=== PATIENT | female | born 1990 | race African-American/Black ===

== ENCOUNTER 2018-12-06 16:28 | Emergency (ER) | payer OTHER ==
[~2018-12-06] VITALS: Ht 154.9 cm; Wt 54.4 kg
[2018-12-06] MEDS ORDERED: IRON159 MG PO (16:36)
--- NOTE | 2018-12-06 16:45 | NUR ---
ED Nurse Note: patient walked in by her self from home, per patient she is in 37 weeks, and she can not feel baby movement since yesterday. AAO x4, VSS at this time, skin is dry, intack. US tecnitian by bedside.
--- NOTE | 2018-12-06 16:54 | Emergency Room Report ---
History of Present Illness General Chief Complaint: Complications Source: Patient Present Illness HPI Patient is Approximately 30 weeks Presents reporting that she has not felt the baby moving over the past last night Denies any abdominal pain denies any cramping Denies any vaginal bleeding or spotting Denies any back pain or flank pain denies any dysuria frequency Patient reports that she is supposed to be delivering some more on [place] cannot give me the name of the specific hospital Allergies: Coded Allergies: No Known Allergies (Unverified , 12/06/18) Patient History Past Medical History: see triage record Pertinent Family History: none Now: Yes - 36 weeks : 2 Para: 1 Reviewed Nursing Documentation: PMH: Agreed; PSxH: Agreed Nursing Documentation-PMH Past Medical History: No Stated History Review of Systems All Other Systems: negative except mentioned in HPI Physical Exam Vital Signs Date Time Temp Pulse Resp B/P (MAP) Pulse Ox O2 Delivery O2 Flow Rate FiO2 12/06/18 16:33 97.3 95 16 113/69 99 Room Air Sp02 EP Interpretation: reviewed, normal General Appearance: well appearing, no apparent distress Head: normocephalic, atraumatic Eyes: bilateral eye PERRL, bilateral eye EOMI ENT: hearing grossly normal, normal pharynx, TMs + canals normal, uvula midline Neck: full range of motion, supple, no meningismus, no bony tend Respiratory: lungs clear, normal breath sounds, no rhonchi, no respiratory distress, no retraction, no accessory muscle use Cardiovascular #1: normal peripheral pulses, regular rate, rhythm, no edema, no gallop, no JVD, no murmur Gastrointestinal: normal bowel sounds, non tender, no hernia, no pulsatile mass , no rebound, other - Gravid abdomen palpable Genitourinary: no CVA tenderness Musculoskeletal: normal inspection Neurologic: oriented x3, responsive, retail route supervisor III-XII nml as tested, motor strength/ tone normal, sensory intact Psychiatric: mood/affect normal Skin: normal color, no rash, warm/dry, palpation normal Lymphatic: normal inspection, no adenopathy Medical Decision Making Diagnostic Impression: Primary Impression: Third trimester ER Course Given the patient's history and complaints ultrasound was obtained There is a heart tone of 140 observed No obvious rupture or other acute pathology Given the patient's late stage of she was encouraged to follow up closely with her MEDICAL DIR physician in the morning Given the lack of any pain or vaginal bleeding further evaluation was not performed Last Vital Signs Date Time Temp Pulse Resp B/P (MAP) Pulse Ox O2 Delivery O2 Flow Rate FiO2 12/06/18 16:33 97.3 95 16 113/69 99 Room Air Status: improved Disposition: HOME, SELF-CARE Condition: Stable Additional Instructions: Patient is provided with the discharge instructions notified to follow up with primary doctor in the next 2-3 days otherwise return to the er with any worsening symptoms. Please note that this report is being documented using [employer] technology. This can lead to erroneous entry secondary to incorrect interpretation by the dictating instrument. Lan Contreras DO Dec 06, 2018 16:54
[2018-12-06 17:55] VITALS: BP 108/66
--- NOTE | 2018-12-06 17:57 | NUR ---
ED Nurse Note: Pt cleared by health care Provider for discharge. DC instructions/prescription was given and explained to pt and verbalized understanding of teachings. All medical deviecs such as ID band removed. Pt is AAO x4, ambulatory and left with all personal belongings.
--- NOTE | 2018-12-07 09:34 | Diagnostic Imaging Report ---
Indication: Pelvic pain, patient Technique: Transabdominal images of the uterus and fetus Comparison: none Findings: There is a single live intrauterine . This demonstrates positive heart activity, heart rate 142 bpm. Anterior fundal placenta, clears the internal cervical os. The cervix is closed, endocervical canal measuring 4.8 cm. Single amniotic fluid pocket demonstrated, measures 2.7 cm measurements as follows-biparietal diameter 91 mm, 37 weeks zero days; head circumference 336 mm, 38 weeks 3 days; abdominal circumference 343 mm, 38 weeks one day; femur length 70 mm, 36 weeks zero days. Estimated gestational age by average of ultrasound measurements is 37 weeks 3 days, estimated date of delivery 12/24/2018. Estimated gestational age by dates is 38 weeks 5 days. Due to emergent nature of the exam, only limited assessment of anatomy performed. Four-chamber heart, normal spine and kidneys demonstrated. Impression: 37 week 3 day, by average of ultrasound measurements, single live intrauterine . Amniotic fluid index is 2.7 cm. Most likely physiologic given length stage of , but the possibility of oligohydramnios should be considered. Findings discussed by phone with Dr. Willett in the emergency room at the time of interpretation
== END 2018-12-06 17:57 | disposition home or self-care (01) ==
LOC: EMR 17:07
DX: Z34.83 Encounter for supervision of other normal pregnancy, third trimester (principal)
CPT/HCPCS: 76805; 99284